=== PATIENT | female | born 1975 | race Caucasian/White ===

== ENCOUNTER 2016-11-26 13:38 | Emergency (ER) | payer OTHER ==
[2016-11-26 13:53] VITALS: TEMP 97.5; BMI 26.5
--- NOTE | 2016-11-26 14:54 | PDOC ---
History of Present Illness - General History Source: Patient - History of Present Illness Presenting Symptoms: Chest Pain Timing/Duration: reports: intermittent Severity/Quality: reports: mild - General Chief Complaint: Chest Pain Stated Complaint: CHEST PAIN Time Seen by Provider: 11/26/16 14:13 Past History - Psycho/Social/Smoking Cessation Hx Anxiety: No Suicidal Ideation: No Smoking History: Never smoked Have you smoked in the past 12 months: Yes Number of Cigarettes Smoked Daily: 3 Information on smoking cessation initiated: No Hx Alcohol Use: No Drug/Substance Use Hx: No Substance Use Type: None - Past Medical History Allergies/Adverse Reactions: Allergies Allergy/AdvReac Type Severity Reaction Status Date / Time ciprofloxacin [From Cipro] Allergy Verified 11/26/16 13:59 ciprofloxacin HCl Allergy Verified 11/26/16 13:59 [From Cipro] Review of Systems - Review of Systems Constitutional: No: Fever Respiratory: No: Cough, Shortness of Breath Cardiac (ROS): Yes: Chest Pain. No: Lightheadedness, Palpitations ABD/GI: No: Nausea, Vomiting Neurological: No: Dizziness *Physical Exam - Physical Exam General Appearance: Yes: Appropriately Dressed. No: Apparent Distress HEENT: positive: Normal Voice Neck: positive: Supple Respiratory/Chest: positive: Lungs Clear, Normal Breath Sounds. negative: Respiratory Distress Cardiovascular: positive: Regular Rate, S1, S2 Gastrointestinal/Abdominal: positive: Soft. negative: Tender Extremity: positive: Normal Inspection Integumentary: positive: Dry, Warm Neurologic: positive: Fully Oriented, Alert, Normal Mood/Affect - Vital Signs Last Vital Signs Temp Pulse Resp BP Pulse Ox 97.5 F L 76 18 118/73 100 11/26/16 13:46 11/26/16 16:33 11/26/16 16:33 11/26/16 16:33 11/26/16 16:33 Heart Score/ECG Review - ECG Intrepretation Comment:: 11/26/16 15:42 Isolated TWI in lead 111, otherwise unremarkable EKG as d/w ED attg (Nhan Rodgers) Medical Decision Making - Medical Decision Making 11/26/16 14:49 41 yo F, anxiety, here w/ chest "discomfort" w/ tingling to L face and upper ext b/l that started at work today, lasted for seconds and then re-occurred at some point. Feels better now. States sxs does not feel like her anxiety. Denies shortness of breath, diaphoresis, nausea, vomiting, palpitations, leg pain or swelling. No history of similar symptoms in the past. No obvious risk factors for DVT, PE. Denies any illicit drug use See exam Atypical CP Unlikely ACS, PERcs out ?anxiety Stable w/ unremarkable exam in ED -ekg/cxr -anticipate dc home 11/26/16 14:55 11/26/16 16:22 EKG and CXR unremarkable. Pt asx at this time and remains stable and well sharon. Dc w/ PMD f//u (Prosper Rodgers) 11/28/16 07:19 The patient was seen and evaluated in conjunction with LINDA Rodgers under my direct supervision, ancillary studies were reviewed. I agree with the plan as outlined by LINDA Rodgers . (Alfredo De Oliveira) *DC/Admit/Observation/Transfer Diagnosis at time of Disposition: Atypical chest pain - Discharge Dispostion Disposition: HOME Condition at time of disposition: Improved - Patient Instructions Printed Discharge Instructions: DI for Atypical Chest Pain Additional Instructions: The source of your symptoms are not clear at this time, but there is no evidence of any serious pathology in ED as your EKG and chest x-ray were unremarkable. If symptoms persist, follow-up with your PMD
--- NOTE | 2016-11-26 15:19 | EKG ---
Test Reason : Blood Pressure : / mmHG Vent. Rate : 090 BPM Atrial Rate : 090 BPM P-R Int : 106 ms QRS Dur : 084 ms QT Int : 362 ms P-R-T Axes : 003 064 007 degrees QTc Int : 442 ms SINUS RHYTHM WITH SHORT IN OTHERWISE NORMAL ECG NO PREVIOUS ECGS AVAILABLE Confirmed by GAGE LUA, MAGGIE ([id number]) on 11/26/2016 3:18:32 PM Referred By: Confirmed By:MAGGIE ALMONTE MD
[2016-11-26 16:35] VITALS: BP 118/73; PULSE 76
== END 2016-11-26 16:35 | disposition home or self-care (01) ==
LOC: JER 13:38
DX: R07.89 Other chest pain (principal); F41.9 Anxiety disorder, unspecified; Z72.0 Tobacco use
CPT/HCPCS: 71020-TC; 84703; 93005; 93010; 99283-25